=== PATIENT | female | born 1955 | race American Indian/Alaskan Native ===

== ENCOUNTER 2017-04-30 08:09 | Outpatient (CLI) | payer OTHER ==
--- NOTE | 2017-04-30 10:49 | Ultrasound Report ---
Right breast ultrasound: The patient has an asymmetry in the upper outer right breast. Outside reports indicate possible change from prior exams. My review of the previous study in 2016 however shows no interval change in the findings are not overtly suspicious. Ultrasound performed today in the area of concern shows no evidence of an abnormality. Impression: No ultrasound correlation to mammographic finding. Recommendation: Have requested mammograms prior to 2016 for comparison. No additional procedures recommended at this time until comparison has been made and a followup report will be issued. BI-RADS CATEGORY: 0 = Needs additional imaging evaluation ACR BI-RADS MAMMOGRAPHIC CODES: 0 = Needs additional imaging evaluation; 1 = Negative; 2 = Benign; 3 = Probably benign; 4 = Suspicious; 5 = Malignant; 6 = Known biopsy-proven malignancy COMMENT: 1. Dense breast tissue, i.e., adenosis, fibrocystic changes, etc., may obscure an underlying neoplasm. 2. Approximately 10% of cancers are not detected with mammography. 3. A negative mammography report should not delay biopsy if a clinically suspicious mass is present.
== END 2017-04-30 08:10 | disposition home or self-care (01) ==
LOC: SPVWC 08:09
PROVIDERS: ATTEND Surgery
DX: N64.89 Other specified disorders of breast (principal)

== ENCOUNTER 2017-10-14 09:50 | Outpatient (CLI) | payer OTHER ==
--- NOTE | 2017-10-14 10:22 | Mammography Report ---
Diagnostic right mammogram with CAD. History: 6 month followup study. Comparison is made to previous studies from March and April 2017. The overall parenchymal pattern is stable. The asymmetric density in the upper-outer quadrant of the right breast is slightly smaller but otherwise unchanged in appearance. Multiple previous ultrasounds demonstrated no significant findings. There is no architectural distortion, no suspicious microcalcifications are seen. Impression: Stable benign findings with slight decrease in size of right upper outer asymmetry. BI-RADS code: 2. Recommendation: Return to normal screening interval.
== END 2017-10-14 09:51 | disposition home or self-care (01) ==
LOC: SPVWC 09:50
PROVIDERS: ATTEND Surgery
DX: N64.89 Other specified disorders of breast (principal); R92.8 Other abnormal and inconclusive findings on diagnostic imaging of breast

== ENCOUNTER 2018-04-14 12:04 | Outpatient (CLI) | payer OTHER ==
--- NOTE | 2018-04-14 12:59 | Mammography Report ---
BILATERAL DIGITAL SCREENING MAMMOGRAM with CAD : 04/14/18 12:04:00 CLINICAL: Routine screening. COMPARISON:10/14/17 right mammogram and 03/28/17 bilateral mammogram. FINDINGS: The breasts are heterogeneously dense, which may obscure small masses.Stable right upper outer right parenchymal asymmetry. No mass, architectural distortion or suspicious calcifications. IMPRESSION: No mammographic evidence of malignancy. BI-RADS CATEGORY: 2 -- Benign RECOMMENDATION: Routine mammographic screening in one year. COMMENT: Patient follow-up letters are generated by our [employer] application.
== END 2018-04-14 12:05 | disposition home or self-care (01) ==
LOC: SPVWC 12:04
PROVIDERS: ATTEND Surgery
DX: Z12.31 Encounter for screening mammogram for malignant neoplasm of breast (principal)
CPT/HCPCS: 77067